=== PATIENT | female | born 1995 | race Two or more races ===

== ENCOUNTER 2017-03-06 23:14 | Emergency (ER) | payer OTHER ==
[~2017-03-06] VITALS: Ht 162.6 cm; Wt 59.0 kg
[2017-03-06 23:20] VITALS: BP 112/79
== END 2017-03-06 23:24 | disposition left against medical advice (07) ==
LOC: ER 23:14
DX: Z53.21 Procedure and treatment not carried out due to patient leaving prior to being seen by health care provider (principal)
CPT/HCPCS: A4606; Z7610

== ENCOUNTER 2017-10-20 21:43 | Emergency (ER) | payer OTHER ==
[~2017-10-20] VITALS: Ht 165.1 cm; Wt 61.2 kg
[2017-10-20 23:13] VITALS: BP 119/89
== END 2017-10-21 00:37 | disposition left against medical advice (07) ==
LOC: ER 21:43
DX: Z53.21 Procedure and treatment not carried out due to patient leaving prior to being seen by health care provider (principal)
CPT/HCPCS: A4606; Z7610